=== PATIENT | male | born 1960 | race Caucasian/White ===

== ENCOUNTER 2018-01-23 08:56 | Emergency (ER) | payer OTHER ==
[~2018-01-23] VITALS: Ht 170.2 cm; Wt 65.3 kg
[2018-01-23 09:00] VITALS: Ht 170.2 cm; Wt 65.3 kg
[2018-01-23 11:52] VITALS: BP 151/73
== END 2018-01-23 11:52 | disposition home or self-care (01) ==
LOC: ED 08:56
DX: S82.002A Unspecified fracture of left patella, initial encounter for closed fracture (principal); G71.01 Duchenne or Becker muscular dystrophy; W19.XXXA Unspecified fall, initial encounter; Y93.89 Activity, other specified; Y92.89 Other specified places as the place of occurrence of the external cause; Y99.8 Other external cause status
CPT/HCPCS: Q0092